=== PATIENT | male | born 1995 | race African-American/Black ===

== ENCOUNTER 2018-11-03 00:49 | Emergency (ER) | payer SELFPAY ==
[~2018-11-03] VITALS: Ht 185.4 cm; Wt 69.0 kg
[2018-11-03] MEDS ORDERED: DEXAMETHASONE 4MG/ML 1ML VIAL IM ONE (02:15)
[2018-11-03 02:30] VITALS: BP 120/65
== END 2018-11-03 02:50 | disposition home or self-care (01) ==
LOC: ER 02:03
DX: B37.2 Candidiasis of skin and nail (principal); L30.9 Dermatitis, unspecified; J45.909 Unspecified asthma, uncomplicated
CPT/HCPCS: 96372; 99283; J1100